=== PATIENT | female | born 1990 | race Caucasian/White ===

== ENCOUNTER 2019-11-29 07:35 | Emergency (ER) | payer OTHER ==
[~2019-11-29] VITALS: Ht 154.9 cm; Wt 104.3 kg
[~2019-11-29 07:35] MED LIST: ABILIFY; APAP500 PO; CARAFATE 1 GM TA1 G1 PO; CIPRO250 M1 PO; CIPROFLOXACIN500 M1 PO; COLACE 100 MG100 MG PO; HYDROCODON-ACE1 EAC7; PANTOPRAZOLE SO40 MG PO; PERCOCET 5-3251 EACH PO; PERCOCET 7.5-31 EACH PO; VYVANSE20 MG; ZANTAC 150MG T150 M1 PO; ZOFRAN4 MG PO
[2019-11-29 08:22] LABS: HEMOGLOBIN 13.2 gm/dL (12.0-15.0); MONOCYTES 4.9 % (1.0-8.0)
[2019-11-29 08:24] LABS: ABSOLUTE NEUTROPHILS 10.3 thou/uL (1.4-8.2); BASOPHILS 0.3 % (0.0-2.0); EOSINOPHILS 0.6 % (0.0-3.0); HEMATOCRIT 39.9 % (37.0-47.0); LYMPHOCYTES 19.5 % (24.0-44.0); MCHC 33.1 g/dL (28.0-37.0); MCV 81.5 fL (80.0-100.0); PLATELET COUNT 566 thou/uL (150-400); POLYS 74.7 % (36.0-66.0); RBC 4.89 mil/uL (4.20-5.00); RDW 18.2 % (10.5-14.5); WBC 13.8 thou/uL (4.0-11.0)
[2019-11-29 08:31] LABS: URINE BLOOD 3+ (Negative); URINE CLARITY CLOUDY; URINE COLOR YELLOW; URINE GLUCOSE-RANDOM* NEGATIVE (Negative); URINE KETONES 1+ (Negative); URINE LEUKOCYTES-REFLEX NEGATIVE (Negative); URINE NITRITE-REFLEX NEGATIVE (Negative); URINE PROTEIN (DIPSTICK) 2+ (Negative); URINE SPECIFIC GRAVITY >= 1.030 (1.005-1.035)
[2019-11-29 08:35] LABS: CALCIUM 9.7 mg/dL (8.5-10.1); CREATININE 0.9 mg/dL (0.6-1.0); POTASSIUM 3.7 mmol/L (3.5-5.1)
[2019-11-29 08:37] LABS: ICTOTEST (BILI CONFIRMATORY) Negative (Negative); URINE BILIRUBIN NEGATIVE (Negative)
[2019-11-29 08:41] LABS: ALBUMIN 4.1 g/dL (3.4-5.0); DIRECT BILIRUBIN 0.1 mg/dL (<0.1-0.2); TOTAL BILIRUBIN 0.4 mg/dL (0.2-1.0); TOTAL PROTEIN 8.8 g/dL (6.4-8.2)
[2019-11-29 08:44] LABS: SQUAMOUS 4-10 Moderate /LPF (0-3)
[2019-11-29 08:45] LABS: BACTERIA-REFLEX >30 Many /HPF (None Seen); CASTS None Seen /LPF (None Seen); CRYSTALS None Seen /LPF (None Seen); URINE RBC >20 Many /HPF (0-2)
[2019-11-29 08:49] LABS: URINE WBC-REFLEX 6-15 Few /HPF (0-5)
[2019-11-29 09:21] LABS: ANISOCYTOSIS 2+
[2019-11-29] MEDS ORDERED: IBUPROFEN 800800 M1 PO (11:43)
[2019-11-29] MEDS ORDERED: MACROBID 100 M100 M2 PO (11:43)
[2019-11-29] MEDS ORDERED: NORCO 5-325 TA1 EAC2 PO (11:43)
[2019-11-29] MEDS ORDERED: SENNA-DOCUSATE1 EAC1 PO (11:43)
[2019-11-29 11:55] VITALS: BP 108/63
== END 2019-11-29 11:55 | disposition home or self-care (01) ==
LOC: ER 07:35
PROVIDERS: Emergency Medicine
DX: N12 Tubulo-interstitial nephritis, not specified as acute or chronic (principal); D27.0 Benign neoplasm of right ovary; R11.0 Nausea; Z90.49 Acquired absence of other specified parts of digestive tract; Z90.89 Acquired absence of other organs; Z88.1 Allergy status to other antibiotic agents; Z88.8 Allergy status to other drugs, medicaments and biological substances; Z91.018 Allergy to other foods; Z91.011 Allergy to milk products

== ENCOUNTER 2019-12-09 22:04 | Emergency (ER) | payer OTHER ==
[~2019-12-09] VITALS: Ht 154.9 cm; Wt 108.9 kg
[~2019-12-09 22:04] MED LIST changes: +IBUPROFEN 800800 M1 PO; +MACROBID 100 M100 M2 PO; +NORCO 5-325 TA1 EAC2 PO; +SENNA-DOCUSATE1 EAC1 PO
[2019-12-09 23:21] LABS: URINE BILIRUBIN 1+ (Negative); URINE BLOOD 3+ (Negative); URINE CLARITY TURBID; URINE COLOR YELLOW; URINE GLUCOSE-RANDOM* NEGATIVE (Negative); URINE KETONES NEGATIVE (Negative); URINE LEUKOCYTES-REFLEX NEGATIVE (Negative); URINE NITRITE-REFLEX POSITIVE (Negative); URINE PROTEIN (DIPSTICK) 1+ (Negative); URINE SPECIFIC GRAVITY >= 1.030 (1.005-1.035)
[2019-12-09 23:30] LABS: CASTS None Seen /LPF (None Seen); CRYSTALS None Seen /LPF (None Seen); MUCUS 0-3 Light strn/LPF (None Seen); SQUAMOUS 0-3 Few /LPF (0-3); URINE RBC >20 Many /HPF (0-2); URINE WBC-REFLEX 0-5 Rare /HPF (0-5)
[2019-12-09 23:56] LABS: ABSOLUTE NEUTROPHILS 5.7 thou/uL (1.4-8.2); BASOPHILS 1.1 % (0.0-2.0); EOSINOPHILS 1.9 % (0.0-3.0); HEMATOCRIT 35.4 % (37.0-47.0); LYMPHOCYTES 33.9 % (24.0-44.0); MCH 27.5 pg (26.0-34.0); MCHC 33.9 g/dL (28.0-37.0); MCV 81.1 fL (80.0-100.0); MONOCYTES 4.3 % (1.0-8.0); PLATELET COUNT 355 thou/uL (150-400); POLYS 58.8 % (36.0-66.0); RBC 4.37 mil/uL (4.20-5.00); RDW 18.5 % (10.5-14.5); WBC 9.7 thou/uL (4.0-11.0)
[2019-12-09 23:59] LABS: CALCIUM 9.2 mg/dL (8.5-10.1); CREATININE 0.7 mg/dL (0.6-1.0); POTASSIUM 3.5 mmol/L (3.5-5.1)
[2019-12-10 00:05] LABS: ALBUMIN 3.7 g/dL (3.4-5.0); TOTAL BILIRUBIN 0.2 mg/dL (0.2-1.0); TOTAL PROTEIN 7.6 g/dL (6.4-8.2)
[2019-12-10] MEDS ORDERED: ONDANSETRON ODT8 MG PO (00:22)
[2019-12-10] MEDS ORDERED: NAPROSYN500 MG PO (00:22)
[2019-12-10 00:47] LABS: URINE BILIRUBIN NEGATIVE (Negative); URINE BLOOD NEGATIVE (Negative); URINE CLARITY CLEAR; URINE COLOR YELLOW; URINE GLUCOSE-RANDOM* NEGATIVE (Negative); URINE KETONES NEGATIVE (Negative); URINE LEUKOCYTES-REFLEX NEGATIVE (Negative); URINE NITRITE-REFLEX NEGATIVE (Negative); URINE PROTEIN (DIPSTICK) NEGATIVE (Negative); URINE UROBILINOGEN 0.2 E.U./dl (0.2-1.0)
[2019-12-10 01:33] VITALS: BP 126/83
[2019-12-10] MEDS ORDERED: NORFLEX100 MG PO (01:39)
== END 2019-12-10 01:45 | disposition home or self-care (01) ==
LOC: ER 22:04
PROVIDERS: Emergency Medicine
DX: M54.9 Dorsalgia, unspecified (principal); R30.0 Dysuria; R11.2 Nausea with vomiting, unspecified; R19.7 Diarrhea, unspecified; F17.210 Nicotine dependence, cigarettes, uncomplicated; Z90.49 Acquired absence of other specified parts of digestive tract; Z79.899 Other long term (current) drug therapy; Z88.8 Allergy status to other drugs, medicaments and biological substances; Z88.1 Allergy status to other antibiotic agents; Z91.011 Allergy to milk products; Z91.018 Allergy to other foods

== ENCOUNTER 2020-03-09 00:25 | Emergency (ER) | payer OTHER ==
[~2020-03-09] VITALS: Ht 154.9 cm; Wt 136.1 kg
[~2020-03-09 00:25] MED LIST changes: +NAPROSYN500 MG PO; +NORFLEX100 MG PO; +ONDANSETRON ODT8 MG PO
[2020-03-09 01:21] LABS: ABSOLUTE NEUTROPHILS 5.8 thou/uL (1.4-8.2); BASOPHILS 0.9 % (0.0-2.0); EOSINOPHILS 1.7 % (0.0-3.0); HEMATOCRIT 35.2 % (37.0-47.0); HEMOGLOBIN 11.6 gm/dL (12.0-15.0); LYMPHOCYTES 27.3 % (24.0-44.0); MCHC 32.8 g/dL (28.0-37.0); MCV 85.3 fL (80.0-100.0); MONOCYTES 3.6 % (1.0-8.0); PLATELET COUNT 292 thou/uL (150-400); POLYS 66.5 % (36.0-66.0); RBC 4.13 mil/uL (4.20-5.00); RDW 16.1 % (10.5-14.5); WBC 8.7 thou/uL (4.0-11.0)
[2020-03-09 01:27] LABS: URINE BILIRUBIN 2+ (Negative); URINE BLOOD 3+ (Negative); URINE CLARITY CLOUDY; URINE GLUCOSE-RANDOM* NEGATIVE (Negative); URINE KETONES TRACE (Negative); URINE LEUKOCYTES-REFLEX NEGATIVE (Negative); URINE PROTEIN (DIPSTICK) 1+ (Negative); URINE SPECIFIC GRAVITY >= 1.030 (1.005-1.035); URINE UROBILINOGEN 0.2 E.U./dl (0.2-1.0)
[2020-03-09 01:31] LABS: ICTOTEST (BILI CONFIRMATORY) Positive (Negative); URINE COLOR BROWN; URINE NITRITE-REFLEX POSITIVE (Negative)
[2020-03-09 01:31] LABS: CALCIUM 8.9 mg/dL (8.5-10.1); CREATININE 0.9 mg/dL (0.6-1.0); POTASSIUM 3.9 mmol/L (3.5-5.1)
[2020-03-09 01:36] LABS: FINE GRANULAR CASTS 0-3 Few /LPF (None Seen); MUCUS 4-6 Moderate strn/LPF (None Seen); SQUAMOUS 4-10 Moderate /LPF (0-3); URINE RBC >20 Many /HPF (0-2)
[2020-03-09 01:37] LABS: BACTERIA-REFLEX >30 Many /HPF (None Seen); CRYSTALS None Seen /LPF (None Seen)
[2020-03-09 01:37] LABS: ALBUMIN 3.6 g/dL (3.4-5.0); TOTAL BILIRUBIN 0.3 mg/dL (0.2-1.0); TOTAL PROTEIN 7.3 g/dL (6.4-8.2)
[2020-03-09] MEDS ORDERED: KEFLEX500 M1 PO (02:28)
[2020-03-09] MEDS ORDERED: NORCO 5-325 TA1 EAC2 PO (03:35)
[2020-03-09 03:38] VITALS: BP 133/76
== END 2020-03-09 03:38 | disposition home or self-care (01) ==
LOC: ER 00:25
PROVIDERS: Emergency Medicine
DX: N12 Tubulo-interstitial nephritis, not specified as acute or chronic (principal); D27.1 Benign neoplasm of left ovary; F17.210 Nicotine dependence, cigarettes, uncomplicated; Z90.49 Acquired absence of other specified parts of digestive tract; Z90.89 Acquired absence of other organs; Z79.899 Other long term (current) drug therapy; Z88.1 Allergy status to other antibiotic agents; Z91.018 Allergy to other foods; Z91.011 Allergy to milk products

== ENCOUNTER 2021-04-05 14:58 | Emergency (ER) | payer OTHER ==
[~2021-04-05] VITALS: Ht 154.9 cm; Wt 90.7 kg
--- NOTE | ~2021-04-05 | EMS ---
[address] [address] EMS Patient Care Report Name: JORGE L CAM Room #: DEP KRYSTAL Nix#: [id number] Admission: 04/05/21 Attend Phys: Discharge: 04/05/21 Date of : [birth year] Report #: [id number] THIS REPORT FOR: //name// Report Transmitted: 04/05/2021 18:01 EMS Care Summary [facility] MED-ACT Incident [id number] @ 04/05/2021 14:05 Incident Location [address] [place] [address] Patient JORGE L ALLEN-ROXANNA Female, 30 Years 1990 Patient Address [address] [place] [address] Patient History Bipolar II Disorder, Patient Allergies Zithromax, Patient Medications None Reported, Chief Complaint RLQ abdominal pain radiating to umbilical Disposition Transported No Lights/[place] Dispatch Reason Abdominal Pain/Problems Transported To [facility] Narrative [id number] dispatched C3 to residence for abdominal pain. Upon arrival pt found sitting on front porch, responsive, breathing nonlabored. [facility] [address] [place] [address] EMS Patient Care Report Name: JORGE L CAM Room #: DEP Nirmal.#: [id number] Admission: 04/05/21 Attend Phys: Discharge: 04/05/21 Date of : [birth year] Report #: [id number] Pt states that she has had right lower abdominal pain, n/v, and a fever for the past 2 days and it's all getting worse. Pt states that the pain radiates to her belly button. Pt states that the only thing that helps the pain is when she puts pressure on her right lower side of her abdomen. Pt states that she hasn't had a BM in few days but she hasn't been able to keep any food down. Pt states that there is no possibility that she is . Pt is able to walk to cot with assistance. Pt states that the pain is slightly better after the Fentanyl IV and the nausea is a lot better after receiving the zofran IV. Pt condition and vitals monitored enroute. ' Pt care transferred in ER edge bed Initial Vitals @14:20P: 124, @14:27P: 122,R: 18,BP: 138/93,Pain: 7/10,GCS: 15,SpO2: 98,Revised Trauma: 12, @14:48P: 107,R: 20,BP: 129/89,GCS: 15,SpO2: 98,Revised Trauma: 12, @14:41P: 117,R: 20,BP: 121/70,GCS: 15,SpO2: 96,Revised Trauma: 12, @14:14P: 133,R: 18,BP: 126/92,Pain: 9/10,GCS: 15,Temp: 101F,SpO2: 96,Revised Trauma: 12, Impression Acute appendicitis Procedures @14:38 Surgical Mask on Patient Response: Unchanged @14:23 Fentanyl - 50 Micrograms (mcg) - Intravenous (IV) Response: Improved @14:20 IV Therapy - Saline Lock 10cc (22 ga) Site: Hand-Left Response: ImprovedSucceeded @14:42 Fentanyl - 50 Micrograms (mcg) - Intravenous (IV) Response: Improved @14:26 Ondansetron - 4 Milligrams (mg) - Intravenous (IV) Response: Improved Timeline 14:04,Call Received 14:04,Psap Call 14:05,Dispatched 14:06,En Route 14:10,On Scene 14:10,At Patient 14:14,BP: 126/92 M,PULSE: 133,RR: 18 R,SPO2: 96 Ox,ETCO2: ,BG: ,PAIN: 9,GCS: 15, [address] [address] EMS Patient Care Report Name: JORGE L CAM [id number] Admission: 04/05/21 Attend Phys: Discharge: 04/05/21 Date of : [birth year] Report #: [id number] 14:20,IV Therapy - Saline Lock 10cc 22 ga Site: Hand-Left,Response: ImprovedSucceeded, 14:20,BP: / M,PULSE: 124,RR: R,SPO2: Ox,ETCO2: ,BG: ,PAIN: ,GCS: , 14:22,Depart Scene 14:23,Fentanyl - 50 Micrograms (mcg) - Intravenous (IV),Response: Improved 14:26,Ondansetron - 4 Milligrams (mg) - Intravenous (IV),Response: Improved 14:27,BP: 138/93 M,PULSE: 122,RR: 18 R,SPO2: 98 Ox,ETCO2: ,BG: ,PAIN: 7,GCS: 15, 14:38,Surgical Mask on Patient,Response: Unchanged 14:41,BP: 121/70 M,PULSE: 117,RR: 20 R,SPO2: 96 Ox,ETCO2: ,BG: ,PAIN: ,GCS: 15, 14:42,Fentanyl - 50 Micrograms (mcg) - Intravenous (IV),Response: Improved 14:48,BP: 129/89 M,PULSE: 107,RR: 20 R,SPO2: 98 Ox,ETCO2: ,BG: ,PAIN: ,GCS: 15, 14:55,At Destination 15:13,Call Closed Disclaimer v1.1 Copyright 2020 [employer], [employer] This EMS Care Summary contains data elements from the applicable legal record (which may be displayed differently). It is designed to provide pertinent information for the following purposes: continuity of care, clinical quality, and state data reporting. The complete legal record is available to ED staff and administrators of the receiving hospital in [employer]'s Patient Tracker. All data is provided "as is."
--- NOTE | ~2021-04-05 | EMS ---
[address] [address] EMS Patient Care Report Name: JORGE L CAM Room #: DEP KRYSTAL Nix#: [id number] Admission: 04/05/21 Attend Phys: Discharge: 04/05/21 Date of : [birth year] Report #: [id number] THIS REPORT FOR: //name// Report Transmitted: 04/05/2021 16:57 EMS Care Summary [facility] MED-ACT Incident [id number] @ 04/05/2021 14:05 Incident Location [address] [place] [address] Patient JORGE L ALLEN-ROXANNA Female, 30 Years 1990 Patient Address [address] [place] [address] Patient History Bipolar II Disorder, Patient Allergies Zithromax, Patient Medications None Reported, Chief Complaint RLQ abdominal pain radiating to umbilical Disposition Transported No Lights/[place] Dispatch Reason Abdominal Pain/Problems Transported To [facility] Narrative [id number] dispatched C3 to residence for abdominal pain. Upon arrival pt found sitting on front porch, responsive, breathing nonlabored. [facility] [address] [place] [address] EMS Patient Care Report Name: JORGE L CAM Room #: DEP Nirmal.#: [id number] Admission: 04/05/21 Attend Phys: Discharge: 04/05/21 Date of : [birth year] Report #: [id number] Pt states that she has had right lower abdominal pain, n/v, and a fever for the past 2 days and it's all getting worse. Pt states that the pain radiates to her belly button. Pt states that the only thing that helps the pain is when she puts pressure on her right lower side of her abdomen. Pt states that she hasn't had a BM in few days but she hasn't been able to keep any food down. Pt states that there is no possibility that she is . Pt is able to walk to cot with assistance. Pt states that the pain is slightly better after the Fentanyl IV and the nausea is a lot better after receiving the zofran IV. Pt condition and vitals monitored enroute. ' Pt care transferred in ER edge bed Initial Vitals @14:20P: 124, @14:27P: 122,R: 18,BP: 138/93,Pain: 7/10,GCS: 15,SpO2: 98,Revised Trauma: 12, @14:48P: 107,R: 20,BP: 129/89,GCS: 15,SpO2: 98,Revised Trauma: 12, @14:41P: 117,R: 20,BP: 121/70,GCS: 15,SpO2: 96,Revised Trauma: 12, @14:14P: 133,R: 18,BP: 126/92,Pain: 9/10,GCS: 15,Temp: 101F,SpO2: 96,Revised Trauma: 12, Impression Acute appendicitis Procedures @14:38 Surgical Mask on Patient Response: Unchanged @14:23 Fentanyl - 50 Micrograms (mcg) - Intravenous (IV) Response: Improved @14:20 IV Therapy - Saline Lock 10cc (22 ga) Site: Hand-Left Response: ImprovedSucceeded @14:42 Fentanyl - 50 Micrograms (mcg) - Intravenous (IV) Response: Improved @14:26 Ondansetron - 4 Milligrams (mg) - Intravenous (IV) Response: Improved Timeline 14:04,Call Received 14:04,Psap Call 14:05,Dispatched 14:06,En Route 14:10,On Scene 14:10,At Patient 14:14,BP: 126/92 M,PULSE: 133,RR: 18 R,SPO2: 96 Ox,ETCO2: ,BG: ,PAIN: 9,GCS: 15, [address] [address] EMS Patient Care Report Name: JORGE L CAM [facility] [id number] Admission: 04/05/21 Attend Phys: Discharge: 04/05/21 Date of : 89 Report #: [id number] 14:20,IV Therapy - Saline Lock 10cc 22 ga Site: Hand-Left,Response: ImprovedSucceeded, 14:20,BP: / M,PULSE: 124,RR: R,SPO2: Ox,ETCO2: ,BG: ,PAIN: ,GCS: , 14:22,Depart Scene 14:23,Fentanyl - 50 Micrograms (mcg) - Intravenous (IV),Response: Improved 14:26,Ondansetron - 4 Milligrams (mg) - Intravenous (IV),Response: Improved 14:27,BP: 138/93 M,PULSE: 122,RR: 18 R,SPO2: 98 Ox,ETCO2: ,BG: ,PAIN: 7,GCS: 15, 14:38,Surgical Mask on Patient,Response: Unchanged 14:41,BP: 121/70 M,PULSE: 117,RR: 20 R,SPO2: 96 Ox,ETCO2: ,BG: ,PAIN: ,GCS: 15, 14:42,Fentanyl - 50 Micrograms (mcg) - Intravenous (IV),Response: Improved 14:48,BP: 129/89 M,PULSE: 107,RR: 20 R,SPO2: 98 Ox,ETCO2: ,BG: ,PAIN: ,GCS: 15, 14:55,At Destination 15:13,Call Closed Disclaimer v1.1 Copyright 2020 [employer], [employer] This EMS Care Summary contains data elements from the applicable legal record (which may be displayed differently). It is designed to provide pertinent information for the following purposes: continuity of care, clinical quality, and state data reporting. The complete legal record is available to ED staff and administrators of the receiving hospital in [employer]'s Patient Tracker. All data is provided "as is."
[~2021-04-05 14:58] MED LIST changes: +KEFLEX500 M1 PO
[2021-04-05 15:34] LABS: ABSOLUTE NEUTROPHILS 7.4 thou/uL (1.4-8.2); BASOPHILS 0.4 % (0.0-2.0); EOSINOPHILS 0.1 % (0.0-3.0); HEMATOCRIT 44.4 % (37.0-47.0); HEMOGLOBIN 14.4 gm/dL (12.0-15.0); LYMPHOCYTES 24.7 % (24.0-44.0); MCH 27.8 pg (26.0-34.0); MCHC 32.5 g/dL (28.0-37.0); MCV 85.5 fL (80.0-100.0); MONOCYTES 5.5 % (1.0-8.0); PLATELET COUNT 305 thou/uL (150-400); POLYS 69.3 % (36.0-66.0); RBC 5.19 mil/uL (4.20-5.00); RDW 17.8 % (10.5-14.5); WBC 10.6 thou/uL (4.0-11.0)
[2021-04-05 15:46] LABS: CALCIUM 9.4 mg/dL (8.5-10.1); CREATININE 0.6 mg/dL (0.6-1.0); POTASSIUM 4.1 mmol/L (3.5-5.1)
[2021-04-05 15:48] LABS: URINE BILIRUBIN 2+ (Negative); URINE BLOOD 2+ (Negative); URINE CLARITY SL CLOUDY; URINE COLOR ORANGE; URINE GLUCOSE-RANDOM* NEGATIVE (Negative); URINE KETONES 2+ (Negative); URINE LEUKOCYTES-REFLEX NEGATIVE (Negative); URINE NITRITE-REFLEX NEGATIVE (Negative); URINE PROTEIN (DIPSTICK) 1+ (Negative); URINE SPECIFIC GRAVITY >= 1.030 (1.005-1.035); URINE UROBILINOGEN 0.2 E.U./dl (0.2-1.0)
[2021-04-05 15:52] LABS: ALBUMIN 4.1 g/dL (3.4-5.0); TOTAL BILIRUBIN 0.6 mg/dL (0.2-1.0); TOTAL PROTEIN 8.1 g/dL (6.4-8.2)
[2021-04-05 15:53] LABS: ICTOTEST (BILI CONFIRMATORY) Negative (Negative)
[2021-04-05 15:57] LABS: MUCUS 4-6 Moderate strn/LPF (None Seen); SQUAMOUS >10 Many /LPF (0-3)
[2021-04-05 15:58] LABS: BACTERIA-REFLEX >30 Many /HPF (None Seen); CASTS None Seen /LPF (None Seen); URINE RBC 3-10 Few /HPF (NONE SEEN); URINE WBC-REFLEX 0-5 Rare /HPF (0-5)
[2021-04-05 15:59] LABS: CRYSTALS None Seen /LPF (None Seen)
[2021-04-05] MEDS ORDERED: MACROBID 100 M100 M1 PO (17:09)
[2021-04-05] MEDS ORDERED: NAPROSYN500 MG PO (17:13)
[2021-04-05 17:20] VITALS: BP 157/93
== END 2021-04-05 17:28 | disposition home or self-care (01) ==
LOC: ER 14:58
PROVIDERS: Emergency Medicine
DX: D23.9 Other benign neoplasm of skin, unspecified (principal); N39.0 Urinary tract infection, site not specified; R10.31 Right lower quadrant pain; F32.9 Major depressive disorder, single episode, unspecified; F17.210 Nicotine dependence, cigarettes, uncomplicated; Z90.49 Acquired absence of other specified parts of digestive tract; Z90.89 Acquired absence of other organs; Z87.442 Personal history of urinary calculi; Z79.891 Long term (current) use of opiate analgesic; Z79.1 Long term (current) use of non-steroidal anti-inflammatories (NSAID); Z79.899 Other long term (current) drug therapy; Z88.6 Allergy status to analgesic agent; Z88.1 Allergy status to other antibiotic agents; Z91.011 Allergy to milk products; Z88.5 Allergy status to narcotic agent; Z91.018 Allergy to other foods